=== PATIENT | female | born 1980 | race Caucasian/White ===

== ENCOUNTER 2021-06-16 18:49 | Emergency (ER) | payer MEDICAID ==
[~2021-06-16] VITALS: Ht 160 cm; Wt 79.4 kg
[2021-06-16 19:47] LABS: Basophils # (auto) 0 10 ^3/uL (0-0.2); Basophils % (auto) 0.7 % (0.0-2.0); Eosinophils # (auto) 0 10 ^3/uL (0-0.8); Eosinophils % (auto) 0.2 % (0.0-7.0); Hematocrit 45.4 % (36.0-46.0); Hemoglobin 15.1 g/dL (12.2-16.2); Lymphocytes # (auto) 0.9 10 ^3/uL (0.4-5.4); Lymphocytes % (auto) 22.8 % (10.0-50.0); Mean Corpuscular Hemoglobin 30.6 pg (28.0-32.0); Mean Corpuscular Hgb Conc. 33.3 g/dL (32.0-36.0); Mean Corpuscular Volume 92.1 fL (80.0-100.0); Monocytes # (auto) 0.4 10 ^3/uL (0-1.3); Monocytes % (auto) 9.4 % (0.0-12.0); Neutrophils # (auto) 2.7 10 ^3/uL (1.6-8.6); Neutrophils % (auto) 66.9 % (37.0-80.0); Nucleated Red Blood Cells % 0.1 %; Red Blood Cells 4.92 10^6/uL (4.0-5.20); Red Cell Distribution Width 12.4 % (11.8-14.3); White Blood Cell 4.1 10^3/uL (4.4-10.8)
[2021-06-16 20:01] LABS: Urine Bacteria FEW /hpf (None Seen); Urine Blood TRACE /uL (Negative); Urine Mucus FEW (None Seen); Urine Specific Gravity 1.023 (1.001-1.035); Urine WBC 7 /hpf (0 - 5)
[2021-06-16 22:35] LABS: Albumin 3.6 g/dL (3.4-5.0); Calcium 9.3 mg/dL (8.5-10.1); Potassium 4.2 mmol/L (3.5-5.1)
[2021-06-16 22:39] LABS: BUN/Creatinine Ratio 12.8; Bilirubin, Total 0.4 mg/dL (0.2-1.0)
[2021-06-17] MEDS ORDERED: ALBU108A5 IN (09:58)
[2021-06-17] MEDS ORDERED: LEVO500T31 PO (09:58)
[2021-06-17 10:37] VITALS: BP 116/78
== END 2021-06-17 10:44 | disposition home or self-care (01) ==
LOC: ER 18:54
DX: J18.9 Pneumonia, unspecified organism (principal); Z87.442 Personal history of urinary calculi
CPT/HCPCS: 36415; 74176; 80053; 81001; 85025

== ENCOUNTER 2023-02-03 10:41 | Emergency (ER) | payer MEDICAID ==
[~2023-02-03] VITALS: Ht 162.6 cm; Wt 82.0 kg
[~2023-02-03 10:41] MED LIST: ALBU108A5 IN; LEVO500T31 PO
[2023-02-03] MEDS ORDERED: KETOROLAC TROMETH 60MG/2ML VIAL IM ONE (11:15)
[2023-02-03 11:35] LABS: Urine Bacteria FEW /hpf (None Seen); Urine Blood TRACE /uL (Negative); Urine WBC 13 /hpf (0 - 5)
[2023-02-03] MEDS ORDERED: TAMS-35 PO (11:55)
[2023-02-03] MEDS ORDERED: NAP500T PO (11:55)
[2023-02-03] MEDS ORDERED: CEPH500T PO (11:55)
[2023-02-03 11:58] VITALS: BP 113/63; PULSE 60; RESP 17; TEMP 97.9; O2SAT 94
== END 2023-02-03 12:04 | disposition home or self-care (01) ==
LOC: ER 10:41
DX: N20.0 Calculus of kidney (principal); Z32.02 Encounter for pregnancy test, result negative
CPT/HCPCS: 81001; 81025; 96372; 99283; J1885

== ENCOUNTER 2024-09-28 10:29 | Inpatient (IN) | payer MEDICAID ==
[~2024-09-28] VITALS: Ht 160 cm; Wt 80.8 kg
[~2024-09-28 10:29] MED LIST changes: +CEPH500T PO; +NAP500T PO; +TAMS-35 PO
--- NOTE | 2024-09-28 10:51 | ED.PDOC ---
General HPI Comments HPI: Poor Historian. 44-year-old female presents to emergency depart for evaluation of left flank pain radiating to the left upper quadrant area for approximately one month. Pain got worse today with the associated nausea and vomiting nonbilious nonbloody. Denies any other acute symptoms. Patient is suspects having a kidne y stone with a history of kidney stones. Past Medical History: Kidney stones Past Surgical History: C-sections and lithotripsy REVIEW OF SYSTEMS: CONSTITUTIONAL: Denies acute: fever, diaphoresis, chills, generalized weakness. HEAD: Denies acute: headache, photophobia Eyes: Denies acute: Double vision, vision loss, eye pain, eye discharge. EARS: Denies acute: tinnitus, hearing loss, ear discharge, ear pain, THROAT: Denies acute: sore throat, swelling, difficulty swallowing , pain with swallowi ng, change in voice. NECK: Denies acute: neck pain, neck swelling, stiff neck. HEART: Denies acute : chest pain, palpitations, LUNGS: Denies acute: SOB, wheezing, cough, hemoptysis ABDOMEN: Denies acute: diarrhea, melena , hematemesis, hematochezia SKIN: Denies acute: rash, redness, lesions, itchiness. EXTREMITIES: Denies acute: calf pain, numbness, tingling, weakness, denies pain in extremity. Denies acute: Low back pain. Neuro: Denies acute: focal neurological deficit, motor or sensory focal neurological deficit, tremors, seizure like activity, confusion, dizziness, change in mental status, loss of bowel or bladder function, cauda equina like symptoms. : Denies acute: dysuria, hematuria, increase in urinary frequency. PSYCH: Denies acute: hallucination, suicidal ideation, homicidal ideation. FEMALE: Denies acute: abnormal vaginal bleeding, foul odor, unusual discharge. PHYSICAL EXAM: General: [id number] acute distress, awake and alert. Head: normocephalic, atraumatic. Neck: supple, trachea is midline, no swelling. Throat: Normal phonation. Eyes:, no erythema, no purulent discharge, no proptosis, no icterus. Heart: regular rate, regular rhythm, no significant murmur appreciated. Lungs: no apparent respiratory distress, Able to speak in full sentences. No wheezing, no rhonchi, no crackles. No stridors Clear to auscultation bilaterally. Abdomen: Mild left upper quadrant tender to palpation, non distended, soft, no guarding, no rebound, + bowel sounds. Neuro: Awake, Alert, oriented to name, self, situation, follows commands GCS=15. Speech is normal. Skin: no petechia, no purpura, no cyanosis, non-pale, not jaundice. Lower extremities: --no - Pitting edema no deformity, no focal swelling, no calf TTP. Makes eye contact. moves all four extremities. Face: no apparent facial droop. Left CVA tenderness to percussion Ambulating in the ED independently. ED COURSE: Chief Complaint: Flank Pain Time Seen by MD: 10:31 Primary Care Provider: ADORE Reviewed notes: Nurses Notes, Allergies Allergies: Coded Allergies: NO KNOWN ALLERGIES (Unverified , 09/18/15) Home Meds Active Scripts Naproxen (NAPROSYN TABLET) 500 Mg Tb, 1 TAB PO BID PRN, #30 TAB 1 Refill Prov:RACHEL GERONIMO DO 02/03/23 Cephalexin Monohydrate (Cephalexin) 500 Mg Tab, 1 TAB PO TID for 7 Days, #21 TAB Prov:RACHEL GERONIMO DO 02/03/23 Tamsulosin Hcl (Flomax) 0.4 Mg Cap, 1 CAP PO DAILY for 10 Days, #10 CAP 11 Refills Prov:RACHEL GERONIMO DO 02/03/23 Albuterol Sulfate (Albuterol Sulfate Hfa) 108 Mcg/Act Aer, 108 MCG IN BID for 20 Days, #30 AER Prov:JAZIEL DON MD 06/17/21 Levofloxacin (Levaquin) 500 Mg Tab, 500 MG PO DAILY for 7 Days, #7 TAB Prov:JAZIEL DON MD 06/17/21 Information Source: Patient Mode of Arrival: Ambulatory Past Medical History PAST MEDICAL HISTORY: Kidney Stones, UTI'S Surgical History: HAND COUNTER History: No Pertinent HAND COUNTER History Family History Family History: Unknown Social History Smoker: Non-Smoker Alcohol: Denies ETOH Use Drugs: Denies Drug Use Lives In: Home Was a procedure done? Was a procedure done?: No Differential Diagnosis Kidney stone (Female): Other (Flank Pain;DDX include Nephrolethiasis, obstructive uropathy, kidney cancer, renal infarct, intraabdominal neoplasm, lower lobe pneumonia, retroperitoneal hemorrhage, pancreatitis, aneurysm, dissection, musculoskeletal, rib contusion/trauma, hematoma, PYLONEPHRITIS, muscle strain, spinal disease. IN A FEMALE) X-Ray, Labs, Meds, VS Vital Signs Date Time Temp Pulse Resp B/P (MAP) Pulse Ox O2 Delivery O2 Flow Rate FiO2 09/28/24 19:19 98.7 82 119/82 (94) 96 98.7 09/28/24 12:50 114/78 09/28/24 12:20 97.7 67 18 114/78 (90) 98 97.7 09/28/24 10:36 97.9 74 18 126/78 (94) 98 97.9 Lab Test 09/28/24 11:10 09/28/24 11:03 Range/Units Urine Color Light-yellow Yellow Urine Clarity Turbid H Clear Urine pH 5.5 5.0-9.0 Urine Specific [place] 1.025 1.001-1.035 Urine Protein Trace H Negative Urine Ketones Negative Negative Urine Blood 2+ H Negative /uL Urine Nitrite Negative Negative Urine Bilirubin Negative Negative Urine Urobilinogen Normal Negative mg/dL Urine Leukocyte Esterase Negative Negative /uL Urine RBC 35 0 - 4 /hpf Urine Microscopic WBC 3 0-5 /HPF Urine Squamous Epithelial Cells Few <5 /hpf Urine Calcium Oxalate Crystals Few None Seen Urine Bacteria Few H None Seen /hpf Urine Hyaline Casts Few 0 - 2 /lpf Urine Mucus Few None Seen Urine Glucose Normal Normal mg/dL White Blood Count 9.3 4.4-10.8 10^3/uL Red Blood Count 5.16 4.0-5.20 10^6/uL Hemoglobin 16.1 12.2-16.2 g/dL Hematocrit 47.4 H 36.0-46.0 % Mean Corpuscular Volume 91.9 80.0-100.0 fL Mean Corpuscular Hemoglobin 31.2 28.0-32.0 pg Mean Corpuscular Hemoglobin Concent 34.0 32.0-36.0 g/dL Red Cell Distribution Width 12.5 11.8-14.3 % Platelet Count 334 140-450 10^3/uL Mean Platelet Volume 8.2 6.9-10.8 fL Neutrophils (%) (Auto) 80.7 H 37.0-80.0 % Lymphocytes (%) (Auto) 14.2 10.0-50.0 % Monocytes (%) (Auto) 3.3 0.0-12.0 % Eosinophils (%) (Auto) 1.5 0.0-7.0 % Basophils (%) (Auto) 0.3 0.0-2.0 % Neutrophils # (Auto) 7.5 1.6-8.6 10 ^3/uL Lymphocytes # (Auto) 1.3 0.4-5.4 10 ^3/uL Monocytes # (Auto) 0.3 0-1.3 10 ^3/uL Eosinophils # (Auto) 0.1 0-0.8 10 ^3/uL Basophils # (Auto) 0 0-0.2 10 ^3/uL Nucleated Red Blood Cells 0.0 % Sodium Level 140 136-145 mmol/L Potassium Level 4.2 3.5-5.1 mmol/L Chloride Level 106 98-107 mmol/L Carbon Dioxide Level 27 20-31 mmol/L Anion Gap 7 5-15 Blood Urea Nitrogen 10 9-23 mg/dL Creatinine 0.91 0.550-1.02 mg/dL Glomerular Filtration Rate Calc 81 >90 mL/min BUN/Creatinine Ratio 11.0 10.0-20.0 Serum Glucose 116 H 74-106 mg/dL Lactic Acid Level 1.1 0.4-2.0 mmol/L Calcium Level 10.7 H 8.7-10.4 mg/dL Total Bilirubin 0.3 0.2-1.0 mg/dL Aspartate Amino Transferase (AST) 13 13-40 U/L Alanine Aminotransferase (ALT) 13 7-40 U/L Alkaline Phosphatase 76 46-116 U/L Total Protein 7.9 5.7-8.2 g/dL Albumin 4.7 3.2-4.8 g/dL Lipase 31 12-53 U/L Current Medications Medications (Trade) Dose Ordered Sig/Karina Route Start Time Stop Time Status Last Admin Fentanyl Citrate 100 mcg ONCE ONCE IV 09/28/24 11:45 09/28/24 11:58 DC 09/28/24 12:50 Tamsulosin HCl (Flomax) 0.4 mg ONCE ONCE PO 09/28/24 11:45 3/20/25 11:57 DC 09/28/24 12:50 Sodium Chloride 1,000 ml @ 1,000 mls/hr Q1H ONCE IV 09/28/24 11:45 09/28/24 12:44 DC 09/28/24 12:43 Ondansetron HCl (Zofran) 4 mg ONCE ONCE IV 09/28/24 13:00 09/28/24 13:01 DC 09/28/24 13:02 [place] [id number] Ph: [phone] DIAGNOSTIC IMAGING Diagnostic Imaging Report : [id number] Signed PATIENT: JOSH MAGANA ACCT: [id number] UNIT: [id number] : 1980 LOC: ER ROOM / BED: / AGE / SEX: 44 / F ADM STATUS: REG ER SERVICE 1039 ORDERING PHYSICIAN: JACOB WRIGHT DO PROCEDURE(s): ABPL - CT AB PEL WO CON-NO ORAL OR IV REASON: L flank pain n/v h/o Kid Stone ORDER NUMBER(s): [id number], ACCESSION NUMBER(s): [id number] Exam: CT CT AB PEL WO CON-NO ORAL OR IV History: L flank pain n/v h/o Kid Stone Comparison Study: CT abdomen and pelvis dated 06/17/2021. Technique: Multidetector spiral CT of the abdomen and pelvis was performed from lung bases to pubic symphysis. Imaging was performed without intravenous contrast. Coronal and sagittal multiplanar reformats were obtained from the axial data set by the technologist. Radiation Dose : 1. Abdomen/Pelvis: CTDIvol 10.6 mGy, DLP 598.3 mGy*cm. Findings: Evaluation of vasculature and solid organs is limited due to lack of intravenous contrast use. Lung Bases: Lung bases are clear. Visualized portions of the heart and pericardium are unremarkable. Liver: The liver is normal in size. No focal lesions. Gallbladder and Biliary Tree: The gallbladder is unremarkable. No intrahepatic or extrahepatic biliary ductal dilatation. Spleen: Unremarkable Pancreas: The pancreas is grossly unremarkable. Adrenal Glands: Unremarkable Kidneys: There is mild left hydronephrosis due to 6 mm obstructive calculus in the proximal left ureter just inferior to the ureteropelvic junction. Left perinephric fat stranding. There is an additional nonobstructive punctate calculus in the lower pole of the left kidney. Right kidney is unremarkable. GI tract: The stomach is grossly normal in appearance. No evidence of small bowel wall thickening or abnormal dilatation to suggest bowel obstruction. The colon is unremarkable. The appendix is visualized and is normal. Peritoneum/mesentery/retroperitoneum. No evidence of free intraperitoneal air. No ascites. No evidence of suspicious lymphadenopathy. Abdominal Wall: Fat containing umbilical hernia. Vasculature: The visualized abdominal aorta is normal in size and caliber. Evaluation of abdominal and pelvic vessels is limited due to lack of intravenous contrast. Urinary Bladder: Grossly unremarkable for degree of distention. Pelvic Organs: Unremarkable Musculoskeletal: No aggressive focal bony lesions, acute fractures or dislocation. IMPRESSION: 1. Mild left hydronephrosis due to 6 mm obstructive calculus in the proximal left ureter. Additional nonobstructive left intrarenal calculus. ATED BY: ABHIJIT RAY MD DICTATED DATE/TIME: 09/28/24 1109 SIGNED BY: ABHIJIT RAY MD SIGNED DATE/TIME: 09/28/24 1109 CC: Time of 1ST Reevaluation: 17:12 (Patient was still having some nausea and vom iting and pain.) Reevaluation 1ST: Improved Patient Education/Counseling: Diagnosis, Treatment Family Education/Counseling: No Family Present Comments Patient presented with the above HPI.----flank pain--workup was initiated. patient was found with the above mentioned diagnosis. the following medications were ordered: please refer to order lists of meds and tests obtained by myself Dr. Wright. Patient ED course and VS have been stabilized. Patient has been reassessed in the ED and remained in a stable condition. Pertinent incidental findings were discussed with the patient and/or family. Patient/family voices understanding and is agreeable with plan. Patient has been observed in the ED adequate length of time to insure improvement/stability. Escalation of care considered: Consideration of escalation to observation or admission Patient continues to have pain and nausea and but despite pain medications. Patient was ADMITTED to the medicine team for further evaluation and treatment of their presentation. All the reports of any imaging studies that were ordered by myself were reviewed by myself. Departure 1 Departure Time of Disposition: 17:13 Impression: Primary Impression: Hydronephrosis with obstructing calculus Disposition: 09 ADMITTED INPATIENT Admit to: Tele Condition: Guarded Discharged With: Self Critical Care Note Critical Care Time?: No I personally scribed for JACOB WRIGHT DO ([email or web address]) on 09/28/24 at 12:48. Electronically submitted by Thomas Barrow ([facility]). JACOB WRIGHT DO Sep 28, 2024 10:51
--- NOTE | 2024-09-28 11:11 | DVH ---
Exam: CT CT AB PEL WO CON-NO ORAL OR IV History: L flank pain n/v h/o Kid Stone Comparison Study: CT abdomen and pelvis dated 06/17/2021. Technique: Multidetector spiral CT of the abdomen and pelvis was performed from lung bases to pubic s ymphysis. Imaging was performed without intravenous contrast. Coronal and sagittal multiplanar reform ats were obtained from the axial data set by the technologist. Radiation Dose : 1. Abdomen/Pelvis: CTDIvol 10.6 mGy, DLP 598.3 mGy*cm. Findings: Evaluation of vasculature and solid organs is limited due to lack of intravenous contrast use. Lung Bases: Lung bases are clear. Visualized portions of the heart and pericardium are unremarkable. Liver: The liver is normal in size. No focal lesions. Gallbladder and Biliary Tree: The gallbladder is unremarkable. No intrahepatic or extrahepatic bilia ry ductal dilatation. Spleen: Unremarkable Pancreas: The pancreas is grossly unremarkable. Adrenal Glands: Unremarkable Kidneys: There is mild left hydronephrosis due to 6 mm obstructive calculus in the proximal left uret er just inferior to the ureteropelvic junction. Left perinephric fat stranding. There is an addition al nonobstructive punctate calculus in the lower pole of the left kidney. Right kidney is unremarkab le. GI tract: The stomach is grossly normal in appearance. No evidence of small bowel wall thickening or abnormal dilatation to suggest bowel obstruction. The colon is unremarkable. The appendix is visualiz ed and is normal. Peritoneum/mesentery/retroperitoneum. No evidence of free intraperitoneal air. No ascites. No evidenc e of suspicious lymphadenopathy. Abdominal Wall: Fat containing umbilical hernia. Vasculature: The visualized abdominal aorta is normal in size and caliber. Evaluation of abdominal a nd pelvic vessels is limited due to lack of intravenous contrast. Urinary Bladder: Grossly unremarkable for degree of distention. Pelvic Organs: Unremarkable Musculoskeletal: No aggressive focal bony lesions, acute fractures or dislocation. IMPRESSION: 1. Mild left hydronephrosis due to 6 mm obstructive calculus in the proximal left ureter. Additional nonobstructive left intrarenal calculus.
[2024-09-28 11:30] LABS: Urine Bacteria FEW /hpf (None Seen); Urine Blood 2+ /uL (Negative); Urine Clarity Turbid (Clear); Urine Color Light-Yellow (Yellow); Urine Hyaline Cast FEW /lpf (0 - 2); Urine Mucus FEW (None Seen); Urine Protein, UAD TRACE (Negative); Urine Specific Gravity 1.025 (1.001-1.035); Urine Squamous Epithelial Cell FEW /hpf (<5); Urine Urobilinogen Normal (Negative); Urine WBC 3 /HPF (0-5); Urine pH 5.5 (5.0-9.0)
[2024-09-28 11:32] LABS: Basophils # (auto) 0 10 ^3/uL (0-0.2); Basophils % (auto) 0.3 % (0.0-2.0); Eosinophils # (auto) 0.1 10 ^3/uL (0-0.8); Eosinophils % (auto) 1.5 % (0.0-7.0); Hematocrit 47.4 % (36.0-46.0); Hemoglobin 16.1 g/dL (12.2-16.2); Lymphocytes # (auto) 1.3 10 ^3/uL (0.4-5.4); Lymphocytes % (auto) 14.2 % (10.0-50.0); Mean Corpuscular Hemoglobin 31.2 pg (28.0-32.0); Mean Corpuscular Volume 91.9 fL (80.0-100.0); Monocytes # (auto) 0.3 10 ^3/uL (0-1.3); Monocytes % (auto) 3.3 % (0.0-12.0); Neutrophils # (auto) 7.5 10 ^3/uL (1.6-8.6); Neutrophils % (auto) 80.7 % (37.0-80.0); Platelet Count (auto) 334 10^3/uL (140-450); Red Blood Cells 5.16 10^6/uL (4.0-5.20); Red Cell Distribution Width 12.5 % (11.8-14.3); White Blood Cell 9.3 10^3/uL (4.4-10.8)
[2024-09-28 11:40] LABS: Alanine Aminotransferase 13 U/L (7-40); Albumin 4.7 g/dL (3.2-4.8); Alkaline Phosphatase 76 U/L (46-116); Anion Gap 7 (5-15); Blood Urea Nitrogen 10 mg/dL (9-23); Carbon Dioxide 27 mmol/L (20-31); Chloride 106 mmol/L (98-107); Lipase 31 U/L (12-53); Potassium 4.2 mmol/L (3.5-5.1); Sodium 140 mmol/L (136-145); Total Protein 7.9 g/dL (5.7-8.2)
[2024-09-28 11:41] LABS: Aspartate Aminotransferase 13 U/L (13-40); Bilirubin, Total 0.3 mg/dL (0.2-1.0); Calcium 10.7 mg/dL (8.7-10.4); Glucose 116 mg/dL (74-106)
[2024-09-28] MEDS: SODIUM CHLORIDE 0.9% 1,000 ML IV ONE (12:43)
[2024-09-28] MEDS: fentaNYL CITRATE 100 MCG/2 ML VL IV ONE (12:50)
[2024-09-28] MEDS: TAMSULOSIN HYDROCHLORIDE 0.4 MG CAP PO ONE (12:50)
[2024-09-28] MEDS: ONDANSETRON HCL 4 MG/2 ML VIAL IV ONE (13:02)
[2024-09-28] MEDS: ONDANSETRON HCL 4 MG/2 ML VIAL ONE (13:03)
[2024-09-28 21:23] VITALS: PULSE 90; RESP 20; O2SAT 96
[2024-09-28 21:48] VITALS: BP 143/83; PULSE 89; RESP 18; TEMP 99.5; O2SAT 96
[2024-09-28] MEDS: SODIUM CHLORIDE 0.9% 1,000 ML IV SCH (23:00)
[2024-09-28] MEDS ORDERED: ACETAMINOPHEN 325 MG TAB PO PRN (23:00)
--- NOTE | 2024-09-28 23:11 | DVHHPRES ---
History of Present Illness Resident Creating Document: STEPHANIE BANKS RESDIENT History of Present Illness Sent 44-year-old female with past medical history of renal stone (underwent laser lithotripsy and 2017) came to the hospital due to left-sided flank pain is 1 days. Pain is localized on left flank radiating to the lower back, 9/10, constant and pressure-like with no specific exacerbating or relieving factor. She also reports nausea and vomiting. She has history of renal stone which he underwent general lithotripsy in in 2016 and treated medically in 2019. She had same symptoms, but mild, 1 month back and was referred to the Urology by PCP, due to late appointment could not see the urologist. PMHx: Kidney stone PSHx: and lithotripsy Family history: Father has hypertension and diabetes, her son has congenital heart disease (dextrocardia) Social history: Lives at home, denies smoking and any other drug use. Home medication: Vitamin-D and semaglutide Allergic history: No known allergy Review of Systems Review of Systems General: patient denies fever, fatigue, weaknes, sweating, any recent changes in appetite and weight HEENT: No headaches, visiual changes, hearing loss, tinnitus, nasal congestion and discharge, and sore throat. Cardiovascular: Denies chest pain, palpitations, dyspnea on exertion, orthopnea, or claudication. Respiratory: No cough, and wheezing. Gastrointestinal: Reports flank pain, nausea and vomiting Genitourinary: No dysuria, hematuria, discharge, frequency, urgency, nocturia, incontinence, and urinary retention. Endocrine: No heat or cold intolerance, polydipsia, polyuria, and polyphagia. Neurological: No dizziness, extremity weakness and numbness, tremors, gait disturbance, seizures, and memory impairment. Psychiatric: Denies depression, anxiety,or insomnia. Musculoskeletal: Denies neck pain, stiffness and swelling, back pain, muscle weakness, joint pain, stiffness, swelling, or limited range of motion. Skin: No rashes, itching, skin lesion, changes in hair, nail, skin texture and breast. Hematologic/Lymphatic: Denies easy bruising, bleeding tendencies, or lymph node enlargement. Allergies: Coded Allergies: NO KNOWN ALLERGIES (Unverified , 09/18/15) Medications Current Medications Medications Dose Ordered Sig/Karina Route Start Time Stop Time Status Last Admin Dose Admin Acetaminophen 650 mg Q6HP PRN PO 09/28/24 23:00 Acetaminophen/ Hydrocodone Bitart 1 tab Q4HP PRN PO 09/28/24 23:00 Ondansetron HCl 4 mg Q4HP PRN IV 09/28/24 23:00 Morphine Sulfate 2 mg Q4HPRN PRN IV 09/28/24 23:00 Enoxaparin Sodium 40 mg DAILY SC 09/29/24 10:00 Sodium Chloride 1,000 ml @ 75 mls/hr [id number] IV 09/28/24 23:00 Tamsulosin HCl 0.4 mg QPM PO 09/29/24 18:00 Ceftriaxone Sodium 50 ml @ 100 mls/hr DAILY@09 IV 09/29/24 09:00 Exam Vital Signs Vital Signs Date Time Temp Pulse Resp B/P (MAP) Pulse Ox O2 Delivery O2 Flow Rate FiO2 09/28/24 21:48 89 18 96 Room Air* 0 21 09/28/24 21:48 99.5 143/83 (103) 99.5 Exam General Appearance: Alert, Oriented X3, Cooperative, No acute distress HEENT: Atraumatic, PERRLA, EOMI, Mucous membrane moist/pink Respiratory: Clear to auscultation, Normal air movement Cardiovascular: Regular rate, Normal S1, Normal S2, No murmurs, no chest wall tenderness Abdominal: Mild left-sided abdominal tenderness Extremities: No clubbing, No cyanosis, No edema, Normal pulses, No tenderness/swelling Skin: No rashes, No breakdown, No significant lesion Neuro: Normal gait, Normal speech, Strength at 5/5 X4 ext, Normal tone, Sensation intact, Cranial nerves 3-12 NL, Reflexes 2+ Psych/Mental Status: Mental status NL, Mood NL Labs/Xrays Labs Test 09/28/24 11:10 09/28/24 11:03 Range/Units Urine Color Light-yellow Yellow Urine Clarity Turbid H Clear Urine pH 5.5 5.0-9.0 Urine Specific [place] 1.025 1.001-1.035 Urine Protein Trace H Negative Urine Ketones Negative Negative Urine Blood 2+ H Negative /uL Urine Nitrite Negative Negative Urine Bilirubin Negative Negative Urine Urobilinogen Normal Negative mg/dL Urine Leukocyte Esterase Negative Negative /uL Urine RBC 35 0 - 4 /hpf Urine Microscopic WBC 3 0-5 /HPF Urine Squamous Epithelial Cells Few <5 /hpf Urine Calcium Oxalate Crystals Few None Seen Urine Bacteria Few H None Seen /hpf Urine Hyaline Casts Few 0 - 2 /lpf Urine Mucus Few None Seen Urine Glucose Normal Normal mg/dL White Blood Count 9.3 4.4-10.8 10^3/uL Red Blood Count 5.16 4.0-5.20 10^6/uL Hemoglobin 16.1 12.2-16.2 g/dL Hematocrit 47.4 H 36.0-46.0 % Mean Corpuscular Volume 91.9 80.0-100.0 fL Mean Corpuscular Hemoglobin 31.2 28.0-32.0 pg Mean Corpuscular Hemoglobin Concent 34.0 32.0-36.0 g/dL Red Cell Distribution Width 12.5 11.8-14.3 % Platelet Count 334 140-450 10^3/uL Mean Platelet Volume 8.2 6.9-10.8 fL Neutrophils (%) (Auto) 80.7 H 37.0-80.0 % Lymphocytes (%) (Auto) 14.2 10.0-50.0 % Monocytes (%) (Auto) 3.3 0.0-12.0 % Eosinophils (%) (Auto) 1.5 0.0-7.0 % Basophils (%) (Auto) 0.3 0.0-2.0 % Neutrophils # (Auto) 7.5 1.6-8.6 10 ^3/uL Lymphocytes # (Auto) 1.3 0.4-5.4 10 ^3/uL Monocytes # (Auto) 0.3 0-1.3 10 ^3/uL Eosinophils # (Auto) 0.1 0-0.8 10 ^3/uL Basophils # (Auto) 0 0-0.2 10 ^3/uL Nucleated Red Blood Cells 0.0 % Sodium Level 140 136-145 mmol/L Potassium Level 4.2 3.5-5.1 mmol/L Chloride Level 106 98-107 mmol/L Carbon Dioxide Level 27 20-31 mmol/L Anion Gap 7 5-15 Blood Urea Nitrogen 10 9-23 mg/dL Creatinine 0.91 0.550-1.02 mg/dL Glomerular Filtration Rate Calc 81 >90 mL/min BUN/Creatinine Ratio 11.0 10.0-20.0 Serum Glucose 116 H 74-106 mg/dL Lactic Acid Level 1.1 0.4-2.0 mmol/L Calcium Level 10.7 H 8.7-10.4 mg/dL Total Bilirubin 0.3 0.2-1.0 mg/dL Aspartate Amino Transferase (AST) 13 13-40 U/L Alanine Aminotransferase (ALT) 13 7-40 U/L Alkaline Phosphatase 76 46-116 U/L Total Protein 7.9 5.7-8.2 g/dL Albumin 4.7 3.2-4.8 g/dL Lipase 31 12-53 U/L Assessment/Plan Assessment/Plan Left-sided Renal stone with hydronephrosis Moderate hydronephrosis due to ureteral stone Complicated UTI CT scan showed, mild left hydronephrosis due to 6 mm obstructive calculus in proximal left ureter with additional nonobstructive left intrarenal calculi IV fluid Pain control Tamsulosin Urology consultation Empiric antibiotic, ceftriaxone Urine culture Asymptomatic hypercalcemia DIET: Regular the DVT PROPHYLAXIS: Lovenox GI PROPHYLAXIS:: Protonix CODE STATUS: Goal of care discussed for more than 18 minutes, full code DISPOSITION: Med surge Patient's status and plan discussed with patient. Case discussed with Dr. Chacko Plan discussed with: Patient, Other (RN) My Orders Orders - STEPHANIE BANKS Procedure Category Date Status Time Admit ADMIT 09/28/24 Transmitted 22:48 Code Status CODE 09/28/24 Transmitted 22:48 Review Orders With KATHIE 09/28/24 In Process Adm. 22:48 Regular Diet DIET 09/29/24 Transmitted Breakfast Acetaminophen Tablet PHA 09/28/24 In Process (Tylenol Tablet) 23:00 Notify Of Changes KATHIE 09/28/24 In Process From Base 22:48 Advance Directive KATHIE 09/28/24 In Process 22:48 Lipid Panel LAB 09/28/24 In Process 22:48 Urine Bacterial LINA 09/28/24 Logged Culture 22:48 Patient Condition ORDERS 09/28/24 Transmitted 22:48 Allergies KATHIE 09/28/24 In Process 22:48 Hydrocodone-Acet PHA 09/28/24 In Process 5/325mg Tab ([place] 23:00 Ondansetron Hcl PHA 09/28/24 In Process (Zofran) 23:00 Drug Screen LAB 09/28/24 Logged 22:48 Hemoglobin A1c LAB 09/28/24 In Process 22:48 Morphine Sulfate PHA 09/28/24 In Process Injection 23:00 Enoxaparin Sodium PHA 09/29/24 In Process (Lovenox) 10:00 Stat Ekg For Chest KATHIE 09/28/24 In Process Pain 22:48 Notify Of Changes KATHIE 09/28/24 In Process From Base 22:48 Npo After Midnight ORDERS 09/28/24 Transmitted Comprehensive LAB 09/29/24 Verified Metabolic Panel 04:00 Complete Blood Count LAB 09/29/24 Verified 04:00 PTPTT LAB 09/29/24 Verified 04:00 Npo (Nothing By DIET 09/29/24 Transmitted Mouth) Diet Breakfast * Urology Consult CONS 09/28/24 Transmitted 22:48 Sodium Chloride 0.9% PHA 09/28/24 In Process 23:00 Sodium Chloride 0.9% PHA 09/28/24 In Process 23:00 Tamsulosin PHA 09/29/24 In Process Hydrochloride (Flomax) 18:00 Ceftriaxone 1gm/50ml PHA 09/29/24 In Process D5w (Rocephin) 09:00 Ceftriaxone 1gm/50ml PHA 09/28/24 In Process D5w (Rocephin) 23:00 Vitamin D, 25-Hydroxy LAB 09/28/24 In Process 22:48 Vitamin B12 LAB 09/28/24 In Process 22:48 Kidney US 09/28/24 Taken 22:48 Date of Service: Sep 28, 2024 Billing Provider: CHETAN CHACKO MD Common Visit Codes: [id number] INP/OBS CARE (HIGH) STEPHANIE BANKS RESDIENT Sep 28, 2024 23:11 CHETAN CHACKO MD Sep 29, 2024 12:50
[2024-09-28 23:23] LABS: Triglycerides 146 mg/dL (< 150)
[2024-09-28 23:24] LABS: LDL Cholesterol 137 mg/dL (< 100)
[2024-09-28 23:25] LABS: Cholesterol 195 mg/dL (< 200); HDL Cholesterol 41 mg/dL (40-59)
[2024-09-29] VITALS (7 sets, daily range): BP systolic 100–111; BP diastolic 59–73; PULSE 79–98; RESP 16–18; TEMP 98.1–98.8; O2SAT 93–97
--- NOTE | 2024-09-29 00:13 | DVH ---
BILATERAL RENAL ULTRASOUND CLINICAL HISTORY: Nephrolithiasis with hydronephrosis COMPARISON: CT obtained earlier the same day. TECHNIQUE: High-resolution real-time grayscale and color flow imaging is performed. FINDINGS: Right kidney: Measures 10.9 cm in length. Normal cortical thickness and echogenicity. No hydronephro sis. Left kidney: Measures 12.9 cm in length. Moderate hydronephrosis. Proximal ureteral calculus seen on CT is not demonstrated on this exam. Bladder: The bladder is distended. No discrete intraluminal lesions as visualized. IMPRESSION: Moderate left hydronephrosis.
[2024-09-29 00:19] LABS: Amphetamine Screen, Urine Neg (NEGATIVE); Barbiturate Scree,Urine Neg (NEGATIVE); Benzodiazephine Screen, Urine Neg (NEGATIVE); Cannabinoid Screen, Urine Neg (NEGATIVE); Cocaine Screen, Urine Neg (NEGATIVE); Opiate Scree,Urine Neg (NEGATIVE); Phencyclidine Screen, Urine Neg (NEGATIVE)
[2024-09-29] MEDS: SODIUM CHLORIDE 0.9% 1,000 ML IV ONE (00:40)
[2024-09-29] MEDS: ONDANSETRON HCL 4 MG/2 ML VIAL IV PRN (00:40)
[2024-09-29] MEDS: cefTRIAXone 1GM/50ML D5W 50 ML IV ONE (01:42)
[2024-09-29] MEDS: TAMSULOSIN HYDROCHLORIDE 0.4 MG CAP PO ONE (01:42)
[2024-09-29] MEDS: MORPHINE SULFATE INJ 2 MG/ml SYRG IV PRN (02:35)
[2024-09-29 06:27] LABS: Basophils # (auto) 0 10 ^3/uL (0-0.2); Basophils % (auto) 0.2 % (0.0-2.0); Eosinophils # (auto) 0 10 ^3/uL (0-0.8); Hematocrit 40.3 % (36.0-46.0); Hemoglobin 13.7 g/dL (12.2-16.2); Lymphocytes # (auto) 1.3 10 ^3/uL (0.4-5.4); Lymphocytes % (auto) 8.3 % (10.0-50.0); Mean Corpuscular Hemoglobin 30.9 pg (28.0-32.0); Mean Corpuscular Hgb Conc. 34.1 g/dL (32.0-36.0); Mean Corpuscular Volume 90.6 fL (80.0-100.0); Monocytes # (auto) 0.7 10 ^3/uL (0-1.3); Monocytes % (auto) 4.6 % (0.0-12.0); Neutrophils # (auto) 13.6 10 ^3/uL (1.6-8.6); Neutrophils % (auto) 86.9 % (37.0-80.0); Platelet Count (auto) 320 10^3/uL (140-450); Red Blood Cells 4.45 10^6/uL (4.0-5.20); Red Cell Distribution Width 12.6 % (11.8-14.3); White Blood Cell 15.6 10^3/uL (4.4-10.8)
[2024-09-29 06:38] LABS: INR 1.02 (0.9-1.15); Prothrombin Time 10.8 sec (9.3-11.8)
[2024-09-29 06:49] LABS: Alanine Aminotransferase 11 U/L (7-40); Albumin 4.2 g/dL (3.2-4.8); Alkaline Phosphatase 67 U/L (46-116); Anion Gap 8 (5-15); Aspartate Aminotransferase 14 U/L (13-40); BUN/Creatinine Ratio 9.7 (10.0-20.0); Blood Urea Nitrogen 11 mg/dL (9-23); Calcium 10.1 mg/dL (8.7-10.4); Carbon Dioxide 25 mmol/L (20-31); Chloride 106 mmol/L (98-107); Glucose 101 mg/dL (74-106); Sodium 139 mmol/L (136-145)
[2024-09-29 06:50] LABS: Bilirubin, Total 0.3 mg/dL (0.2-1.0)
[2024-09-29] MEDS: cefTRIAXone 1GM/50ML D5W 50 ML IV SCH (09:30)
[2024-09-29] MEDS: ENOXAPARIN SOD 40 MG/0.4 ML SYRINGE SC SCH (09:31)
[2024-09-29] MEDS: HYDROcodone-ACET 5/325MG TAB PO PRN (09:31)
[2024-09-29] MEDS: SODIUM CHLORIDE 0.9% 1,000 ML IV SCH (09:34)
--- NOTE | 2024-09-29 12:30 | DVH ---
EXAM: XY CHEST XRAY 1 VIEW Indication: Pain Technique: Single frontal view of the chest was obtained Comparison: None FINDINGS: Lines and Tubes: None Lungs: No focal consolidation. Pulmonary vascular congestion. Pleura: No effusion. No pneumothorax. Cardiomediastinal contours: Cardiomegaly. Bones: No acute osseous abnormality. IMPRESSION: Mild cardiomegaly with pulmonary vascular congestion.
--- NOTE | 2024-09-29 12:35 | DVHPNRES ---
Progress Note Date Seen: Sep 29, 2024 Resident Creating Document: ADRIA COWART RESIDENT Medical Necessity Reason Pt with a Central, PICC or Fol: No Subjective Review of Systems JOSH MAGANA is a 44-year-old female with past medical history of renal stone (underwent laser lithotripsy and 2016) came to the hospital due to left-sided flank pain is 1 days. Pain is localized on left flank radiating to the lower back, 9/10, constant and pressure-like with no specific exacerbating or relieving factor. She also reports nausea and vomiting. She has history of renal stone which he underwent general lithotripsy in in 2016 and treated medically in 2019. She had same symptoms, but mild, 1 month back and was referred to the Urology by PCP, due to late appointment could not see the urologist. PMHx: Kidney stone PSHx: and lithotripsy Family history: Father has hypertension and diabetes, her son has congenital heart disease (dextrocardia) Social history: Lives at home, denies smoking and any other drug use. Home medication: Vitamin-D and semaglutide Allergic history: No known allergy Patient seen and examined at the bedside. Patient reported mild improvement in the abdominal pain after seeing pain medication. CT showed mild to moderate hydronephrosis, currently on Flomax with IVF and straining the urine, consulted Urology Objective vital signs Vital Sign Date Time Temp Pulse Resp B/P (MAP) Pulse Ox O2 Delivery O2 Flow Rate FiO2 09/29/24 08:39 98.4 79 16 109/73 (85) 95 98.4 09/29/24 08:00 Room Air* 0 21 Total Intake and Output 09/28/24 09/28/24 09/29/24 15:00 23:00 07:00 Intake Total 1000 ml 240 ml Balance 1000 ml 240 ml medications Current Medications Medications Dose Ordered Sig/Karina Route Start Time Stop Time Status Last Admin Dose Admin Acetaminophen 650 mg Q6HP PRN PO 09/28/24 23:00 Acetaminophen/ Hydrocodone Bitart 1 tab Q4HP PRN PO 09/28/24 23:00 09/29/24 09:31 1 TAB Ondansetron HCl 4 mg Q4HP PRN IV 09/28/24 23:00 09/29/24 09:31 4 MG Morphine Sulfate 2 mg Q4HPRN PRN IV 09/28/24 23:00 09/29/24 02:35 2 MG Enoxaparin Sodium 40 mg DAILY SC 09/29/24 10:00 09/29/24 09:31 40 MG Tamsulosin HCl 0.4 mg QPM PO 09/29/24 18:00 Ceftriaxone Sodium 50 ml @ 100 mls/hr DAILY@09 IV 09/29/24 09:00 09/29/24 09:30 100 MLS/HR Sodium Chloride 1,000 ml @ 150 mls/hr Q6H40M IV 09/29/24 08:00 09/29/24 09:34 150 MLS/HR Examination General Appearance: Alert, Oriented X3, Cooperative, No acute distress HEENT: Atraumatic, PERRLA, EOMI, Mucous membrane moist/pink Respiratory: Clear to auscultation, Normal air movement Cardiovascular: Regular rate, Normal S1, Normal S2, No murmurs, no chest wall tenderness Abdominal: Mild left-sided flank abdominal tenderness Extremities: No clubbing, No cyanosis, No edema, Normal pulses, No tenderness/swelling Skin: No rashes, No breakdown, No significant lesion Neuro: Normal gait, Normal speech, No sensory motor deficits Psych/Mental Status: Mental status NL, Mood NL laboratory and microbiology Laboratory Tests 09/29/24 05:56 Test 09/29/24 05:56 Range/Units Serum Glucose 101 74-106 mg/dL Labs and/or images reviewed: Labs reviewed by me, Image(s) reviewed by me Problem List/Assessment/Plan Problem List/Assessment/Plan #Left-sided Renal stone with hydronephrosis # Moderate hydronephrosis due to ureteral stone - IVF - pain management - Flomax - urology consult - CT and ultrasound showed [id number] left hydronephrosis with a 6 mm Calculi # ? UTI - evident on UA - urine culture - Rocephin Protonix Lovenox Regular diet Goals of care discussed with the patient for more than 27 minutes: Full code status Case discussed with Dr. John, patient and nurse Plan discussed with: Patient My Orders My Orders Orders - ADRIA COWART RESIDENT Procedure Category Date Status Time Sodium Chloride 0.9% PHA 09/29/24 In Process 08:00 Strain All Urine For KATHIE 09/29/24 In Process Stones 07:47 Urinalysis LAB 09/29/24 Logged 09:41 Chest Xray 1 View XY 09/29/24 Resulted 10:20 Date of Service: Sep 29, 2024 Billing Provider: GONZÁLEZ FOFANA MD Common Visit Codes: [id number] INP/OBS CARE(HIGH) RAUL COWARTCYNTHIA RESIDENT Sep 29, 2024 12:35 GONZÁLEZ FOFANA MD Oct 02, 2024 00:58
[2024-09-29] MEDS: TAMSULOSIN HYDROCHLORIDE 0.4 MG CAP PO SCH (18:50)
[2024-09-30 01:00] VITALS: BP 103/60; PULSE 88; RESP 18; TEMP 98.8; O2SAT 97
[2024-09-30 05:00] VITALS: BP 116/68; PULSE 84; RESP 19; TEMP 98.3; O2SAT 96
[2024-09-30 06:10] LABS: Basophils # (auto) 0 10 ^3/uL (0-0.2); Basophils % (auto) 0.2 % (0.0-2.0); Eosinophils # (auto) 0 10 ^3/uL (0-0.8); Eosinophils % (auto) 0.2 % (0.0-7.0); Hematocrit 37.9 % (36.0-46.0); Hemoglobin 13.2 g/dL (12.2-16.2); Lymphocytes # (auto) 1.1 10 ^3/uL (0.4-5.4); Lymphocytes % (auto) 8.2 % (10.0-50.0); Mean Corpuscular Hemoglobin 31.8 pg (28.0-32.0); Mean Corpuscular Hgb Conc. 34.8 g/dL (32.0-36.0); Mean Corpuscular Volume 91.3 fL (80.0-100.0); Monocytes # (auto) 0.9 10 ^3/uL (0-1.3); Monocytes % (auto) 6.7 % (0.0-12.0); Neutrophils # (auto) 11.4 10 ^3/uL (1.6-8.6); Neutrophils % (auto) 84.7 % (37.0-80.0); Platelet Count (auto) 267 10^3/uL (140-450); Red Blood Cells 4.16 10^6/uL (4.0-5.20); Red Cell Distribution Width 12.6 % (11.8-14.3); White Blood Cell 13.5 10^3/uL (4.4-10.8)
[2024-09-30 06:28] LABS: Anion Gap 7 (5-15); Calcium 10.2 mg/dL (8.7-10.4); Carbon Dioxide 26 mmol/L (20-31); Chloride 105 mmol/L (98-107); Sodium 138 mmol/L (136-145)
[2024-09-30 06:34] LABS: BUN/Creatinine Ratio 9.3 (10.0-20.0); Blood Urea Nitrogen 12 mg/dL (9-23)
[2024-09-30 06:35] LABS: Glucose 109 mg/dL (74-106)
[2024-09-30 09:00] VITALS: BP 117/72; PULSE 87; RESP 20; TEMP 97.7; O2SAT 96
--- NOTE | 2024-09-30 09:35 | DVHPN2 ---
Subjective Continues to complain of left flank pain Reviewed: Care Plan, H&P, Labs, Medications, Previous Orders, Radiology, Other (Consultation) Changes from previous H/P or p: No Changes Objective Vitals Vital Signs Date Time Temp Pulse Resp B/P (MAP) Pulse Ox O2 Delivery O2 Flow Rate FiO2 09/30/24 05:00 98.3 84 19 116/68 (84) 96 98.3 09/29/24 20:00 Room Air* 0 21 Intake/Output Intake and Output 09/30/24 07:00 Intake Total 2000 ml Balance 2000 ml Intake Oral 1950 ml IV Total 50 ml # Voids 7 General Appearance: Alert, Oriented X3, Cooperative, mild distress HEENT: Atraumatic Lungs: Clear to auscultation, Normal air movement Cardiovascular: Regular rate, Normal S1, Normal S2 Abdomen: Normal bowel sounds, Soft, Other (Left CVA tenderness) Extremities: No edema Neuro: Normal speech, Cranial nerves 3-12 NL Psych/Mental Status: Mental status NL, Mood NL Medications Current Medications Medications Dose Ordered Sig/Karina Route Start Time Stop Time Status Last Admin Dose Admin Acetaminophen 650 mg Q6HP PRN PO 09/28/24 23:00 Acetaminophen/ Hydrocodone Bitart 1 tab Q4HP PRN PO 09/28/24 23:00 09/29/24 18:53 1 TAB Ondansetron HCl 4 mg Q4HP PRN IV 09/28/24 23:00 09/30/24 03:21 4 MG Morphine Sulfate 2 mg Q4HPRN PRN IV 09/28/24 23:00 09/30/24 01:06 2 MG Enoxaparin Sodium 40 mg DAILY SC 09/29/24 10:00 09/29/24 09:31 40 MG Tamsulosin HCl 0.4 mg QPM PO 09/29/24 18:00 09/29/24 18:50 0.4 MG Ceftriaxone Sodium 50 ml @ 100 mls/hr DAILY@09 IV 09/29/24 09:00 09/29/24 09:30 100 MLS/HR Sodium Chloride 1,000 ml @ 150 mls/hr Q6H40M IV 09/29/24 08:00 09/29/24 23:07 150 MLS/HR Laboratory Results Laboratory Tests 09/30/24 05:29 Chemistry Test 09/30/24 05:29 Calcium Level 10.2 mg/dL (8.7-10.4) Urinalysis Test 09/28/24 11:10 Urine Color Light-yellow (Yellow) Urine Clarity Turbid (Clear) H Urine pH 5.5 (5.0-9.0) Urine Specific [place] 1.025 (1.001-1.035) Urine Protein Trace (Negative) H Urine Ketones Negative (Negative) Urine Blood 2+ /uL (Negative) H Urine Nitrite Negative (Negative) Urine Bilirubin Negative (Negative) Urine Urobilinogen Normal mg/dL (Negative) Urine Leukocyte Esterase Negative /uL (Negative) Urine RBC 35 /hpf (0 - 4) Urine Microscopic WBC 3 /HPF (0-5) Urine Squamous Epithelial Cells Few /hpf (<5) Urine Calcium Oxalate Crystals Few (None Seen) Urine Bacteria Few /hpf (None Seen) H Urine Hyaline Casts Few /lpf (0 - 2) Urine Mucus Few (None Seen) Urine Glucose Normal mg/dL (Normal) Labs and/or images reviewed: Labs reviewed by me, Image(s) reviewed by me Assessment/Plan Assessment/Plan Covering: #Sepsis with leukocytosis due to complicated UTI; continue IV antibiotics; reviewed urinalysis; pending urine cultures; continue monitoring #MATILDA in the setting of sepsis and obstructive uropathy; vasomotor nephropathy can not be ruled out; continue IV fluids; avoid nephrotoxic agents; continue monitoring #Left flank pain due to left proximal ureteral calculus measuring 6 mm causing left hydronephrosis; evaluated by Urology that recommended pain control and expulsive measures; adjust pain management as indicated; continue expulsive measures; continue monitoring #Elevated LDL; encouraged the patient to adopt healthy lifestyle with diet and exercise in order to lose weight and control her elevated LDL; continue monitoring #Obesity; counseled the patient on adopting healthy lifestyle with diet and exercise in order to lose weight; continue monitoring Goals of care discussed for 20 minutes; full code Late Entry. This medical document was created using an electronic medical record system with computerized dictation system. Although this document has been carefully reviewed, there might still be some phonetic and typographical errors. These areas are purely typographical due to imperfections of the software programs, and do not reflect any compromise in the patient's medical care. Plan discussed with: Patient, Other (Nurse) Date of Service: Sep 30, 2024 Billing Provider: NIKKI TAMEZ MD Common Visit Codes: [id number] INP/OBS CARE(HIGH) Secondary Visit Codes: [id number] CARE PLAN 30 MINUTES (20 minutes) NIKKI TAMEZ MD Sep 30, 2024 09:34
--- NOTE | 2024-09-30 12:15 | DVHINCON2 ---
Date of service: Sep 30, 2024 Referring Physician Hospitalist Reason for Consultation Left flank pain History of Present Illness Patient is admitted to [facility] for left-sided flank pain. She is known to have kidney stones and has undergone lithotripsy with stent placement and stent removal on the left side in 2015. On this admission, the CT scan reveals a 6 mm left proximal ureteral calculus with mild hydronephrosis. Her labs are within normal limits. Her pain is well-controlled and she is agreeable to outpatient management of her stone Past Medical History Kidney stone Past Surgical History Left extracorporeal shockwave lithotripsy with stent placement and subsequent stent removal on 06/10/2016 Family History: Diabetes mellitus G8 FATHER FH: cancer FH: heart disease G8 MOTHER G8 FATHER Allergies: Coded Allergies: NO KNOWN ALLERGIES (Unverified , 09/18/15) Home Meds Active Scripts Tamsulosin Hcl (Flomax) 0.4 Mg Cap, 1 CAP PO DAILY for 10 Days, #10 CAP 11 Refills Prov:RACHEL GERONIMO DO 02/03/23 Current Medications Current Medications Medications (Trade) Dose Ordered Sig/Karina Route PRN Reason Start Time Stop Time Status Last Admin Tamsulosin HCl (Flomax) 0.4 mg QPM PO 09/29/24 18:00 09/29/24 18:50 Review of Systems Left flank pain managed well with narcotics Vital Signs Vital Signs Date Time Temp Pulse Resp B/P (MAP) Pulse Ox O2 Delivery O2 Flow Rate FiO2 09/30/24 09:00 97.7 87 20 117/72 (87) 96 97.7 09/29/24 20:00 Room Air* 0 21 Physical Exam No acute distress No CVA tenderness Labs/Diagnostic Data Labs Test 09/30/24 05:29 09/29/24 05:56 09/28/24 11:10 09/28/24 11:03 Range/Units White Blood Count 13.5 H 4.4-10.8 10^3/uL Red Blood Count 4.16 4.0-5.20 10^6/uL Hemoglobin 13.2 12.2-16.2 g/dL Hematocrit 37.9 36.0-46.0 % Mean Corpuscular Volume 91.3 80.0-100.0 fL Mean Corpuscular Hemoglobin 31.8 28.0-32.0 pg Mean Corpuscular Hemoglobin Concent 34.8 32.0-36.0 g/dL Red Cell Distribution Width 12.6 11.8-14.3 % Platelet Count 267 140-450 10^3/uL Mean Platelet Volume 7.8 6.9-10.8 fL Neutrophils (%) (Auto) 84.7 H 37.0-80.0 % Lymphocytes (%) (Auto) 8.2 L 10.0-50.0 % Monocytes (%) (Auto) 6.7 0.0-12.0 % Eosinophils (%) (Auto) 0.2 0.0-7.0 % Basophils (%) (Auto) 0.2 0.0-2.0 % Neutrophils # (Auto) 11.4 H 1.6-8.6 10 ^3/uL Lymphocytes # (Auto) 1.1 0.4-5.4 10 ^3/uL Monocytes # (Auto) 0.9 0-1.3 10 ^3/uL Eosinophils # (Auto) 0 0-0.8 10 ^3/uL Basophils # (Auto) 0 0-0.2 10 ^3/uL Nucleated Red Blood Cells 0.0 % Sodium Level 138 136-145 mmol/L Potassium Level 4.0 3.5-5.1 mmol/L Chloride Level 105 98-107 mmol/L Carbon Dioxide Level 26 20-31 mmol/L Anion Gap 7 5-15 Blood Urea Nitrogen 12 9-23 mg/dL Creatinine 1.29 H 0.550-1.02 mg/dL Glomerular Filtration Rate Calc 53 >90 mL/min BUN/Creatinine Ratio 9.3 L 10.0-20.0 Serum Glucose 109 H 74-106 mg/dL Calcium Level 10.2 8.7-10.4 mg/dL Prothrombin Time 10.8 9.3-11.8 sec Prothrombin Time INR 1.02 0.9-1.15 Activated Partial Thromboplast Time 28.0 24.5-34.5 SEC Total Bilirubin 0.3 0.2-1.0 mg/dL Aspartate Amino Transferase (AST) 14 13-40 U/L Alanine Aminotransferase (ALT) 11 7-40 U/L Alkaline Phosphatase 67 46-116 U/L Total Protein 7.0 5.7-8.2 g/dL Albumin 4.2 3.2-4.8 g/dL Beta HCG, Quantitative 0.1 L 1.5-4.2 mIU/mL Urine Color Light-yellow Yellow Urine Clarity Turbid H Clear Urine pH 5.5 5.0-9.0 Urine Specific [place] 1.025 1.001-1.035 Urine Protein Trace H Negative Urine Ketones Negative Negative Urine Blood 2+ H Negative /uL Urine Nitrite Negative Negative Urine Bilirubin Negative Negative Urine Urobilinogen Normal Negative mg/dL Urine Leukocyte Esterase Negative Negative /uL Urine RBC 35 0 - 4 /hpf Urine Microscopic WBC 3 0-5 /HPF Urine Squamous Epithelial Cells Few <5 /hpf Urine Calcium Oxalate Crystals Few None Seen Urine Bacteria Few H None Seen /hpf Urine Hyaline Casts Few 0 - 2 /lpf Urine Mucus Few None Seen Urine Glucose Normal Normal mg/dL Urine Opiates Screen Neg NEGATIVE Urine Fentanyl Screen Neg NEGATIVE Urine Barbiturates Screen Neg NEGATIVE Urine Phencyclidine Screen Neg NEGATIVE Urine Amphetamines Screen Neg NEGATIVE Urine Benzodiazepines Screen Neg NEGATIVE Urine Cocaine Screen Neg NEGATIVE Urine Cannabinoids Screen Neg NEGATIVE Hemoglobin A1c 4.9 <5.7 % A1C Lactic Acid Level 1.1 0.4-2.0 mmol/L Triglycerides Level 146 < 150 mg/dL Cholesterol Level 195 < 200 mg/dL LDL Cholesterol 137 H < 100 mg/dL HDL Cholesterol 41 40-59 mg/dL Lipase 31 12-53 U/L Vitamin B12 Level 684 211-911 pg/mL Vitamin D 25-Hydroxy 58.3 30.0-100 ng/mL Assessment Left proximal ureteral calculus measuring 6 mm and mild hydronephrosis. Plan/Recommendation Pain control and expulsive measures Outpatient follow up with possible lithotripsy if stone is not passed Plan discussed with: Patient, Other TIM JUÁREZ MD Sep 30, 2024 12:15
[2024-09-30 13:00] VITALS: BP 101/69; PULSE 77; RESP 18; TEMP 98.1; O2SAT 96
[2024-09-30] MEDS: MANNITOL FTV 25% 12.5 GM/50 ML 50 ML IV ONE (14:56)
[2024-09-30 20:00] VITALS: PULSE 77; RESP 18; O2SAT 96
[2024-09-30 21:00] VITALS: BP 112/67; PULSE 69; RESP 17; TEMP 99; O2SAT 94
[2024-10-01 01:05] VITALS: BP 102/74; PULSE 68; RESP 18; TEMP 98.2; O2SAT 96
[2024-10-01 05:00] VITALS: BP 127/68; PULSE 87; RESP 17; TEMP 98.3; O2SAT 94
[2024-10-01 06:01] LABS: Basophils # (auto) 0.1 10 ^3/uL (0-0.2); Basophils % (auto) 0.7 % (0.0-2.0); Eosinophils # (auto) 0.1 10 ^3/uL (0-0.8); Eosinophils % (auto) 0.6 % (0.0-7.0); Hematocrit 38.8 % (36.0-46.0); Hemoglobin 13.3 g/dL (12.2-16.2); Lymphocytes # (auto) 1.6 10 ^3/uL (0.4-5.4); Mean Corpuscular Hemoglobin 31.7 pg (28.0-32.0); Mean Corpuscular Hgb Conc. 34.4 g/dL (32.0-36.0); Mean Corpuscular Volume 92.1 fL (80.0-100.0); Monocytes # (auto) 0.7 10 ^3/uL (0-1.3); Monocytes % (auto) 7.1 % (0.0-12.0); Neutrophils # (auto) 7.7 10 ^3/uL (1.6-8.6); Neutrophils % (auto) 75.6 % (37.0-80.0); Platelet Count (auto) 258 10^3/uL (140-450); Red Blood Cells 4.22 10^6/uL (4.0-5.20); Red Cell Distribution Width 12.4 % (11.8-14.3); White Blood Cell 10.3 10^3/uL (4.4-10.8)
[2024-10-01 06:18] LABS: Chloride 103 mmol/L (98-107); Potassium 3.9 mmol/L (3.5-5.1); Sodium 138 mmol/L (136-145)
[2024-10-01 06:19] LABS: Anion Gap 8 (5-15); Calcium 9.9 mg/dL (8.7-10.4); Carbon Dioxide 27 mmol/L (20-31)
[2024-10-01 06:24] LABS: BUN/Creatinine Ratio 8.5 (10.0-20.0); Blood Urea Nitrogen 10 mg/dL (9-23); Glucose 85 mg/dL (74-106)
[2024-10-01 08:15] VITALS: PULSE 86; RESP 16; O2SAT 94
[2024-10-01 08:30] VITALS: BP 119/77; PULSE 86; RESP 16; TEMP 98.3; O2SAT 94
[2024-10-01] MEDS ORDERED: TAMS-35 PO (11:36)
[2024-10-01] MEDS ORDERED: IBUP-1454 PO (11:36)
[2024-10-01] MEDS ORDERED: CEPH250C PO (11:36)
--- NOTE | 2024-10-01 11:46 | DVHDSRES ---
Discharge Summary Date of Admission Resident Creating Document: ADRIA COWART RESIDENT Sep 28, 2024 at 22:48 Date of Discharge: Oct 01, 2024 Admitting Diagnosis Left-sided flank pain Labs/Diagnostic Data: Laboratory Results Test 10/01/24 05:23 09/29/24 05:56 09/28/24 11:10 09/28/24 11:03 White Blood Count 10.3 10^3/uL (4.4-10.8) Red Blood Count 4.22 10^6/uL (4.0-5.20) Hemoglobin 13.3 g/dL (12.2-16.2) Hematocrit 38.8 % (36.0-46.0) Mean Corpuscular Volume 92.1 fL (80.0-100.0) Mean Corpuscular Hemoglobin 31.7 pg (28.0-32.0) Mean Corpuscular Hemoglobin Concent 34.4 g/dL (32.0-36.0) Red Cell Distribution Width 12.4 % (11.8-14.3) Platelet Count 258 10^3/uL (140-450) Mean Platelet Volume 7.6 fL (6.9-10.8) Neutrophils (%) (Auto) 75.6 % (37.0-80.0) Lymphocytes (%) (Auto) 16.0 % (10.0-50.0) Monocytes (%) (Auto) 7.1 % (0.0-12.0) Eosinophils (%) (Auto) 0.6 % (0.0-7.0) Basophils (%) (Auto) 0.7 % (0.0-2.0) Neutrophils # (Auto) 7.7 10 ^3/uL (1.6-8.6) Lymphocytes # (Auto) 1.6 10 ^3/uL (0.4-5.4) Monocytes # (Auto) 0.7 10 ^3/uL (0-1.3) Eosinophils # (Auto) 0.1 10 ^3/uL (0-0.8) Basophils # (Auto) 0.1 10 ^3/uL (0-0.2) Nucleated Red Blood Cells 0.0 % Sodium Level 138 mmol/L (136-145) Potassium Level 3.9 mmol/L (3.5-5.1) Chloride Level 103 mmol/L (98-107) Carbon Dioxide Level 27 mmol/L (20-31) Anion Gap 8 (5-15) Blood Urea Nitrogen 10 mg/dL (9-23) Creatinine 1.18 mg/dL (0.550-1.02) Glomerular Filtration Rate Calc 59 mL/min (>90) BUN/Creatinine Ratio 8.5 (10.0-20.0) Serum Glucose 85 mg/dL (74-106) Calcium Level 9.9 mg/dL (8.7-10.4) Prothrombin Time 10.8 sec (9.3-11.8) Prothrombin Time INR 1.02 (0.9-1.15) Activated Partial Thromboplast Time 28.0 SEC (24.5-34.5) Total Bilirubin 0.3 mg/dL (0.2-1.0) Aspartate Amino Transferase (AST) 14 U/L (13-40) Alanine Aminotransferase (ALT) 11 U/L (7-40) Alkaline Phosphatase 67 U/L (46-116) Total Protein 7.0 g/dL (5.7-8.2) Albumin 4.2 g/dL (3.2-4.8) Beta HCG, Quantitative 0.1 mIU/mL (1.5-4.2) Urine Color Light-yellow (Yellow) Urine Clarity Turbid (Clear) Urine pH 5.5 (5.0-9.0) Urine Specific [place] 1.025 (1.001-1.035) Urine Protein Trace (Negative) Urine Ketones Negative (Negative) Urine Blood 2+ /uL (Negative) Urine Nitrite Negative (Negative) Urine Bilirubin Negative (Negative) Urine Urobilinogen Normal mg/dL (Negative) Urine Leukocyte Esterase Negative /uL (Negative) Urine RBC 35 /hpf (0 - 4) Urine Microscopic WBC 3 /HPF (0-5) Urine Squamous Epithelial Cells Few /hpf (<5) Urine Calcium Oxalate Crystals Few (None Seen) Urine Bacteria Few /hpf (None Seen) Urine Hyaline Casts Few /lpf (0 - 2) Urine Mucus Few (None Seen) Urine Glucose Normal mg/dL (Normal) Urine Opiates Screen Neg (NEGATIVE) Urine Fentanyl Screen Neg (NEGATIVE) Urine Barbiturates Screen Neg (NEGATIVE) Urine Phencyclidine Screen Neg (NEGATIVE) Urine Amphetamines Screen Neg (NEGATIVE) Urine Benzodiazepines Screen Neg (NEGATIVE) Urine Cocaine Screen Neg (NEGATIVE) Urine Cannabinoids Screen Neg (NEGATIVE) Hemoglobin A1c 4.9 % A1C (<5.7) Lactic Acid Level 1.1 mmol/L (0.4-2.0) Triglycerides Level 146 mg/dL (< 150) Cholesterol Level 195 mg/dL (< 200) LDL Cholesterol 137 mg/dL (< 100) HDL Cholesterol 41 mg/dL (40-59) Lipase 31 U/L (12-53) Vitamin B12 Level 684 pg/mL (211-911) Vitamin D 25-Hydroxy 58.3 ng/mL (30.0-100) Other Laboratory Tests 10/01/24 05:23 Brief Hx & Hospital Course: JOSH MAGANA is a 44-year-old female with past medical history of renal stone (underwent laser lithotripsy and 2016) came to the hospital due to left-sided flank pain is 1 days. Pain is localized on left flank radiating to the lower back, 9/10, constant and pressure-like with no specific exacerbating or relieving factor. She also reports nausea and vomiting. She has history of renal stone which he underwent general lithotripsy in in 2016 and treated medically in 2019. She had same symptoms, but mild, 1 month back and was referred to the Urology by PCP, due to late appointment could not see the urologist. Patient required hospital admission for further evaluation and management nephrolithiasis. CT abdominal pelvis showed mild left hydronephrosis due to 6 mm obstructive calculus in the proximal left ureter. Additional nonobstructive left intrarenal calculus. bilateral renal ultrasound showed moderate left hydronephrosis. Patient also have mild UTI symptoms, started ceftriaxone. Due to stone patient is started on Flomax with IV hydration along with pain management and strain the urine. Urology neuropsychology medical consultant evaluated the patient and advised outpatient follow up with possible lithotripsy if stone did not past. Patient condition was improved, hemodynamically stable and in condition to be discharged home with optimal medical treatment. Patient will advised to follow up with PCP and Urology after the discharge for possible lithotripsy. Patient was advised about healthy lifestyle modifications including diet and exercise. Physical examination on the day of discharge: General Appearance: Alert, Oriented X3, Cooperative, Not in acute distress HEENT: Atraumatic, Mucous membranes moist/pink Respiratory: Clear to auscultation, Normal air movement, No added sounds Cardiovascular: Regular rate, Normal S1, Normal S2, No murmurs Abdominal: mild left flank tenderness. Active bowel sounds, Soft, no distention Extremities: No edema, Normal pulses, No tenderness/swelling Skin: No Significant rash, except past surgical scars Neuro: Normal speech, sensorimotor deficits none Psych/Mental Status: Mental status NL, Mood NL Nurse was there as cartography supervisor during examination Case discussed with Dr. Tamez Consults/Reason for consult Urology for nephrolithiasis Operations or Procedures CT CT AB PEL WO CON-NO ORAL OR IV IMPRESSION: 1. Mild left hydronephrosis due to 6 mm obstructive calculus in the proximal left ureter. Additional nonobstructive left intrarenal calculus. BILATERAL RENAL ULTRASOUND IMPRESSION: Moderate left hydronephrosis. Condition at Discharge: Stable Final Diagnosis/Problems List Left-sided Renal stone with hydronephrosis Moderate hydronephrosis due to ureteral stone Sepsis with leukocytosis due to complicated UTI UTI MATILDA likely vasomotor nephropathy Discharge Disposition: Home Discharge Instruct/Medications Diet: Regular Activity: No Restrictions, As Tolerated Follow Up/Referral: PCP/discharge clinic within one week Urology for possible lithotripsy in outpatient within 1 to 2 weeks Medications: Flomax 0.4 QPm Keflex bid for 5 days Ibuprofen prn Discharge Statement: "Patient was advised to return to the ER or call 911 if any headaches, dizziness, shortness of breath, chest pain, abdominal pain, bleeding, fevers, or worsening of medical condition. Patient was counseled about treatment plan, medications, possible side effects, patientverbalized understanding. All questions were answered to the best of my ability. This discharge took greater then 30 minutes in planning, reviewing documentation, counseling the patient, and discussing with other team members." ASSESSMENT ASSESSMENT Assessment Addendum Addendum Addendum I was physically present for the ontiveros portions of the service provided to patient by THE RESIDENT. I have reviewed the documentation, discussed the case with resident and agree with the resident's documentation except as noted. Also the patient's clinical case was discussed with the patient's nurse. This medical document was created using an electronic medical record system with computerized dictation system. Although this document has been carefully reviewed, there might still be some phonetic and typographical errors. These areas are purely typographical due to imperfections of the software programs, and do not reflect any compromise in the patient's medical care. Late signature. Date of Service: Oct 01, 2024 Billing Provider: NIKKI TAMEZ MD Common Visit Codes: [id number] DISCH DAY >30min ADRIA COWART RESIDENT Oct 01, 2024 11:46 NIKKI TAMEZ MD Oct 01, 2024 13:58
[2024-10-01 12:30] VITALS: BP 102/67; PULSE 79; RESP 16; TEMP 97.8; O2SAT 95
[2024-10-01 12:49] VITALS: BP 102/67; PULSE 79; RESP 16; TEMP 97.8; O2SAT 95
== END 2024-10-01 14:01 | disposition home or self-care (01) | DRG 720 ==
LOC: ER 10:29 → OVERFLOW 22:48 → EAST 09-29 00:33
PROVIDERS: ADMIT Internal Medicine; ATTEND Internal Medicine
DX: A41.9 Sepsis, unspecified organism (principal); N17.0 Acute kidney failure with tubular necrosis; E66.9 Obesity, unspecified; E83.52 Hypercalcemia; Z83.3 Family history of diabetes mellitus; Z98.891 History of uterine scar from previous surgery; Z87.442 Personal history of urinary calculi; Z68.31 Body mass index [BMI] 31.0-31.9, adult; Z79.899 Other long term (current) drug therapy; Z79.51 Long term (current) use of inhaled steroids; N13.6 Pyonephrosis; N20.2 Calculus of kidney with calculus of ureter
CPT/HCPCS: 36415; 71045; 74176; 76775; 80048; 80053; 80061; 80307; 81001; 82306; 82607; 83036; 83605; 83690; 84702; 85025; 85610; 85730; 87086; 96361; 96374; 96375; G0378; J2405